=== PATIENT | female | born 1975 | race American Indian/Alaskan Native ===

== ENCOUNTER 2017-08-14 16:50 | Emergency (ER) | payer MEDICAID, OTHER ==
[2017-08-14 17:06] VITALS: BP 139/87; PULSE 105; RESP 20; TEMP 97.8; O2SAT 100
[2017-08-14] MEDS ORDERED: Lidocaine 5% Patch TD STA (19:10)
[2017-08-14] MEDS ORDERED: Dexamethasone 4 mg/1 ml IM STA (19:10)
[2017-08-14] MEDS ORDERED: Oxycodone/Acetaminophen 5/325 mg Tab PO STA (19:10)
[2017-08-14] MEDS ORDERED: Lidocaine 5% Patch TD ONE (19:19)
[2017-08-14] MEDS ORDERED: Oxycodone/Acetaminophen 5/325 mg Tab ONE (19:20)
--- NOTE | 2017-08-14 20:12 | C.PDOC ---
History Of Present Illness 42 y/o female presents to the ED for evaluation of back pain for 1 day. States she was taking the garbage out and tripped on a neighbors garbage but steadied herself and did not fall. Patient felt as if she pulled her back in doing so. She reports Hx of similar pain in the past. Patient woke up at 3am with severe mid-back pain radiating down the right leg. She states the pain is so bad, it is taking her breath away. In contrary to triage note, patient denies shortness of breath and chest pain. Denies any associated incontinence of bowel/bladder, hematuria, numbness, or focal weakness. Time Seen by Provider: 08/14/17 18:49 Chief Complaint (Nursing): Back Pain History Per: Patient History/Exam Limitations: no limitations Onset/Duration Of Symptoms: Days (x1) Current Symptoms Are (Timing): Still Present Quality Of Discomfort: "Pain" Previous Symptoms: Back Pain Past Medical History Reviewed: Historical Data, Nursing Documentation, Vital Signs Vital Signs: Last Vital Signs Temp 97.8 F 08/14/17 17:02 Pulse 105 H 08/14/17 17:02 Resp 20 08/14/17 17:02 BP 139/87 08/14/17 17:02 Pulse Ox 100 08/14/17 20:17 - Medical History PMH: No Chronic Diseases Other Surgeries: Gastric bypass surgery Family History: States: No Known Family Hx - Social History Hx Tobacco Use: Yes (former) Hx Alcohol Use: No Hx Substance Use: No - Immunization History Hx Tetanus Toxoid Vaccination: No Hx Influenza Vaccination: No Hx Pneumococcal Vaccination: No Review Of Systems Except As Marked, All Systems Reviewed And Found Negative. Constitutional: Negative for: Fever Genitourinary: Negative for: Dysuria, Incontinence, Hematuria Musculoskeletal: Positive for: Back Pain Neurological: Negative for: Weakness, Numbness, Incoordination Physical Exam - Physical Exam Appears: Non-toxic, No Acute Distress Skin: Normal Color, Warm, Dry Head: Atraumatic, Normacephalic Eye(s): bilateral: Normal Inspection, PERRL, EOMI Nose: Normal Oral Mucosa: Moist Neck: Normal ROM, No Midline Cervical Tenderness, Supple Chest: Symmetrical Cardiovascular: Rhythm Regular, No Murmur Respiratory: Normal Breath Sounds, No Accessory Muscle Use Gastrointestinal/Abdominal: Soft, No Tenderness, No Distention Back: No Vertebral Tenderness, Paraspinal Tenderness (right-sided), Straight Leg Raising (Right: + straight leg raise at 40 degrees) Extremity: Normal ROM, Tenderness (to the right lateral buttock and posterior leg), No Deformity, Other (Pt is ambulatory) Neurological/Psych: Oriented x3, Normal Speech, Normal Motor, Normal Sensation, No Other (neurological deficits) Gait: Steady ED Course And Treatment O2 Sat by Pulse Oximetry: 100 (RA) Pulse Ox Interpretation: Normal Progress Note: Patient given Decadron IM, Percocet PO, Valium PO, and Lidoderm patch. On reevaluation patient feels better, and is ambulatory in the ED. No neurological deficits. Reassessment Condition: Improved Disposition Counseled Patient/Family Regarding: Diagnosis, Need For Followup, Rx Given - Disposition Disposition: HOME/ ROUTINE Disposition Time: 20:11 Condition: STABLE Additional Instructions: Follow up with PMD within 1-2 days. Return to ED if feel worse. Prescriptions: Methylprednisolone [Medrol] 4 mg PO DAILY #42 tab oxyCODONE/Acetaminophen [Percocet 5/325 mg Tab] 1 tab PO QID PRN #20 tab PRN Reason: Pain diaZEpam [Valium] 2 mg PO TID #15 tab Instructions: Sciatica Forms: [employer] [facility] [employer] ([place]) - POA Present On Arrival: None - Clinical Impression Clinical Impression: Sciatica - PA / PROGRAM ADMIN / Resident Statement MD/DO has reviewed & agrees with the documentation as recorded. - Scribe Statement The provider has reviewed the documentation as recorded by the Scribe (Maria Luisa Verdin) All medical record entries made by the Scribe were at my direction and personally dictated by me. I have reviewed the chart and agree that the record accurately reflects my personal performance of the history, physical exam, medical decision making, and the department course for this patient. I have also personally directed, reviewed, and agree with the discharge instructions and disposition.
== END 2017-08-14 20:22 | disposition home or self-care (01) ==
LOC: C.ER 16:50
DX: M54.31 Sciatica, right side (principal)

== ENCOUNTER 2017-08-21 15:55 | Emergency (ER) | payer MEDICAID, OTHER ==
[2017-08-21 16:09] VITALS: BP 121/80; PULSE 118; RESP 18; TEMP 98.9; O2SAT 100
[2017-08-21] MEDS ORDERED: Hydrocodone/Acetaminophen 5 mg /300 mg Tab PO STA (17:05)
[2017-08-21] MEDS ORDERED: Hydrocodone/Acetaminophen 5 mg /300 mg Tab PO ONE (17:14)
[2017-08-21] MEDS ORDERED: Dexamethasone 4 mg/1 ml IM STA (17:39)
[2017-08-21 17:41] LABS: BARBITURATES, UR NEGATIVE (NEGATIVE); BENZODIAZEPINES, UR POSITIVE (NEGATIVE); OPIATES, UR POSITIVE (NEGATIVE); PHENCYCLIDINE, UR NEGATIVE (NEGATIVE)
--- NOTE | 2017-08-21 17:58 | C.PDOC ---
History Of Present Illness Pt c/o right buttock pain radiating down RLE. Time Seen by Provider: 08/21/17 16:46 Chief Complaint (Nursing): Back Pain History Per: Patient Onset/Duration Of Symptoms: Days (2) Current Symptoms Are (Timing): Still Present Quality Of Discomfort: "Pain" Severity: Moderate Associated Symptoms: None. denies: Incontinence, New Weakness, New Numbness Exacerbating Factor(s): Movement Additional History Per: Prior Records Past Medical History Reviewed: Historical Data, Nursing Documentation, Vital Signs Vital Signs: Last Vital Signs Temp 98.9 F 08/21/17 16:05 Pulse 118 H 08/21/17 16:05 Resp 18 08/21/17 16:05 BP 121/80 08/21/17 16:05 Pulse Ox 100 08/21/17 16:05 - Medical History PMH: No Chronic Diseases Other Surgeries: Gastric Bypass Family History: States: Unknown Family Hx - Social History Hx Tobacco Use: Yes (former) Hx Alcohol Use: No Hx Substance Use: No - Immunization History Hx Tetanus Toxoid Vaccination: Yes Hx Influenza Vaccination: No Hx Pneumococcal Vaccination: No Review Of Systems Except As Marked, All Systems Reviewed And Found Negative. Constitutional: Negative for: Fever, Weakness Cardiovascular: Negative for: Chest Pain Respiratory: Positive for: Shortness of Breath ("only when the pain is very bad "). Negative for: Hemoptysis Gastrointestinal: Negative for: Vomiting, Abdominal Pain Genitourinary: Negative for: Dysuria, Incontinence Musculoskeletal: Negative for: Neck Pain Skin: Negative for: Rash Neurological: Negative for: Weakness, Numbness Physical Exam - Physical Exam Appears: Non-toxic, No Acute Distress Skin: Normal Color, Warm, Dry, No Rash Head: Atraumatic, Normacephalic Eye(s): bilateral: Normal Inspection, PERRL, EOMI Neck: Normal ROM, Supple Cardiovascular: Rhythm Regular Respiratory: Normal Breath Sounds, No Accessory Muscle Use Gastrointestinal/Abdominal: Soft, No Tenderness Back: No CVA Tenderness, No Vertebral Tenderness Extremity: Normal ROM, No Pedal Edema, No Calf Tenderness Neurological/Psych: Oriented x3, Normal Motor, Normal Sensation ED Course And Treatment O2 Sat by Pulse Oximetry: 100 Pulse Ox Interpretation: Normal Progress Note: Patient refused Vicodin, Tramadol and Dexamethasone injection. She states that she is allergic to NSAIDS. Disposition Counseled Patient/Family Regarding: Diagnosis, Need For Followup, Rx Given - Disposition Referrals: [facility] [Outside] [facility] [Outside] Disposition: HOME/ ROUTINE Disposition Time: 17:58 Condition: STABLE Additional Instructions: Follow up with an orthopedic or back specialist. Return to the ER if you develop weakness, abdominal pain, trouble urinating, worsening of symptoms or if you have any other concerns. Prescriptions: oxyCODONE/Acetaminophen [Percocet 5/325 mg Tab] 1 tab PO QID PRN #10 tab PRN Reason: Pain Instructions: Sciatica (DC) - Clinical Impression Clinical Impression: Right sided sciatica
== END 2017-08-21 18:15 | disposition home or self-care (01) ==
LOC: C.ER 15:55
DX: M54.31 Sciatica, right side (principal)